=== PATIENT | female | born 1940 | race Caucasian/White ===

== ENCOUNTER 2024-09-05 11:23 | Observation (INO) | payer MEDICARE ==
--- NOTE | 2024-09-05 11:46 | ED ---
Recheck HPI - General Chief Complaint: Recheck/Abnormal Lab/Rx Stated Complaint: HTN Time Seen by Provider: 09/05/24 11:40 Source: patient, family, RN notes reviewed Mode of arrival: ambulatory Limitations: no limitations - History of Present Illness Initial Comments: This is a 84-year-old female with history of hypertension presenting to the emergency department with with referral from records section supervisor office with concern for hypertension. Patient states this morning her blood pressure was elevated in the 200s over 110s. Patient takes amlodipine, losartan, and Lasix. Patient said that she did not take her Lasix this morning. She denies chest pain or chest pressure, shortness of breath, difficulty breathing, headaches, blurry/double vision, peripheral edema. she is on 2.5 mg daily eliquis for history of DVT of lower extremity. no other acute complaints at this time. - Related Data Home Medications Medication Instructions Recorded Confirmed Amitriptyline HCl [Elavil] 50 mg PO HS 09/05/24 09/05/24 Ammonium Lactate Cream [Lac-Hydrin 1 applic TOPICAL BID 09/05/24 09/05/24 12% Cream] Apixaban [Eliquis] 2.5 mg PO BID-W/MEALS 09/05/24 09/05/24 Azelastine HCl [Astelin Nasal 2 spr EA NOSTRIL BID 09/05/24 09/05/24 [place]] Budesonide/Formoterol Fumarate 2 puff INHALATION RT-BID 09/05/24 09/05/24 [Symbicort 160-4.5 Mcg Inhaler] Calcium 600 Mg-Vit D3 25mcg 1 tab PO BID 09/05/24 09/05/24 DULoxetine HCL [Cymbalta] 30 mg PO W/BRKFST 09/05/24 09/05/24 Esomeprazole Magnesium [NexIUM 40 mg PO DAILY@1600 09/05/24 09/05/24 24Hr] Famotidine [Pepcid] 40 mg PO HS 09/05/24 09/05/24 Ferrous Sulfate [Feosol] 325 mg PO Q7D 09/05/24 09/05/24 Fluticasone Nasal [place] [Flonase 2 spr EA NOSTRIL BID 09/05/24 09/05/24 Nasal [place]] Furosemide [Lasix] 40 mg PO W/BRKFST 09/05/24 09/05/24 Leflunomide [Arava] 20 mg PO W/BRKFST 09/05/24 09/05/24 Levothyroxine Sodium [Synthroid] 25 mcg PO MOTUTHFRSA 09/05/24 09/05/24 Levothyroxine Sodium [Synthroid] 50 mcg PO SUWE 09/05/24 09/05/24 Losartan [Cozaar] 50 mg PO W/BRKFST 09/05/24 09/05/24 Multivit-Min/FA/Lycopen/Lutein 1 tab PO W/BRKFST 09/05/24 09/05/24 [Centrum Silver Tablet] Primidone 50 mg PO TID-W/MEALS 09/05/24 09/05/24 Sertraline [Zoloft] 100 mg PO W/SUPPER 09/05/24 09/05/24 Simvastatin [Zocor] 10 mg PO W/SUPPER 09/05/24 09/05/24 Tiotropium 2.5 Mcg/Puff [Spiriva 1 puff INHALATION RT-BID 09/05/24 09/05/24 Respimat 2.5 Mcg] Vit C/E/Zn/Coppr/Lutein/Zeaxan 1 cap PO BID 09/05/24 09/05/24 [Preservision Areds 2 Softgel] Zafirlukast [Accolate] 20 mg PO W/BRKFST 09/05/24 09/05/24 atenoloL [Tenormin] 75 mg PO W/BRKFST 09/05/24 09/05/24 rOPINIRole HCL [Requip XL] 4 mg PO HS 09/05/24 09/05/24 tiZANidine [Zanaflex] 4 mg PO HS 09/05/24 09/05/24 traMADol HCL [traMADol HCL ER] 300 mg PO W/BRKFST 09/05/24 09/05/24 traZODone HCL [Desyrel] 25 mg PO HS 09/05/24 09/05/24 Allergies Allergy/AdvReac Type Severity Reaction Status Date / Time amoxicillin [From Augmentin] Allergy Rash/Hives Verified 09/05/24 15:09 azithromycin Allergy Rash/Hives Verified 09/05/24 15:09 [From Zithromax Z-Deny] clavulanic acid Allergy Rash/Hives Verified 09/05/24 15:09 [From Augmentin] Review of Systems ROS Statement: Those systems with pertinent positive or pertinent negative responses have been documented in the HPI. ROS Other: All systems not noted in ROS Statement are negative. Past Medical History Past Medical History: Hypertension, Rheumatoid Arthritis (RA) Additional Past Medical History / Comment(s): Back pain History of Any Multi-Drug Resistant Organisms: None Reported Past Surgical History: No Surgical Hx Reported Past Psychological History: No Psychological Hx Reported Smoking Status: Never smoker Past Alcohol Use History: None Reported Past Drug Use History: None Reported General Exam Limitations: no limitations General appearance: alert, in no apparent distress Eye exam: Present: normal appearance, PERRL, EOMI. Absent: scleral icterus, conjunctival injection, periorbital swelling ENT exam: Present: normal exam, mucous membranes moist Neck exam: Present: normal inspection. Absent: tenderness, meningismus, lymphadenopathy Respiratory exam: Present: normal lung sounds bilaterally. Absent: respiratory distress, wheezes, rales, rhonchi, stridor Cardiovascular Exam: Present: regular rate, normal rhythm, normal heart sounds. Absent: systolic murmur, diastolic murmur, rubs, gallop, clicks GI/Abdominal exam: Present: soft, normal bowel sounds. Absent: distended, tenderness, guarding, rebound, rigid Extremities exam: Present: normal inspection, full ROM, normal capillary refill, other (bilateral LE peripheral edema, 1+). Absent: tenderness, pedal edema, joint swelling, calf tenderness Back exam: Present: normal inspection Neurological exam: Present: alert, oriented X3, CN II-XII intact Course Vital Signs 09/05/24 09/05/24 11:28 12:35 Temperature 97.6 F Pulse Rate 97 100 Respiratory 20 20 Rate Blood Pressure 201/98 174/107 O2 Sat by Pulse 97 98 Oximetry Medical Decision Making - Medical Decision Making Was pt. sent in by a medical professional or institution (, PA, IN SHOP SERVICE TECHNICIAN, urgent care, hospital, or jail...) When possible be specific @ -Was advised by records section supervisor report to emergency department for hypertension. Did you speak to anyone other than the patient for history (EMS, parent, family, police, friend...)? What history was obtained from this source @ -No Did you review nursing and triage notes (agree or disagree)? Why? @ -I reviewed and agree with nursing and triage notes Were old charts reviewed (outside hosp., previous admission, EMS record, old EKG, old radiological studies, urgent care reports/EKG's, jail records)? Report findings @ -No old charts were reviewed Differential Diagnosis (chest pain, altered mental status, abdominal pain women, abdominal pain men, vaginal bleeding, weakness, fever, dyspnea, syncope, headache, dizziness, GI bleed, back pain, seizure, CVA, palpatations, mental health, musculoskeletal)? @ -Differential Chest Pain: Stable Angina, Unstable Angina, STEMI, NSTEMI Aortic Dissection, Pneumothorax, Musculoskeletal, Esophageal Spasm GERD, Cholecystitis, Pancreatitis, Zoster, this is not meant to be an all-inclusive list. EKG interpreted by me (3pts min.). @ -Completed at 1154 sinus rhythm with a ventricular rate of 96, parable 132, QRS 74, QTc 399. There is noted occasional PVCs. X-rays interpreted by me (1pt min.). @ -None done CT interpreted by me (1pt min.). @ -None done U/S interpreted by me (1pt. min.). @ -None done What testing was considered but not performed or refused? (CT, X-rays, U/S, labs)? Why? @ -None What meds were considered but not given or refused? Why? @ -None Did you discuss the management of the patient with other professionals (professionals i.e. , PA, IN SHOP SERVICE TECHNICIAN, lab, RT, psych nurse, social media senior associate, records section supervisor, teacher, telecommunications officer, case managers)? Give summary @ -spoke with sound internal medicine physician in regard to admission who has agreed with cardiology on consult Was smoking cessation discussed for >3mins.? @ -No Was critical care preformed (if so, how long)? @ -No Were there social determinants of health that impacted care today? How? (Homelessness, low income, unemployed, alcoholism, drug addiction, transportation, low edu. Level, literacy, decrease access to med. care, intermediate, rehab)? @ -No Was there de-escalation of care discussed even if they declined (Discuss DNR or withdrawal of care, Hospice)? DNR status @ -No What co-morbidities impacted this encounter? (DM, HTN, Smoking, COPD, CAD, Canc er, CVA, ARF, Chemo, Hep., AIDS, mental health diagnosis, sleep apnea, morbid obesity)? @ -None Was patient admitted / discharged? Hospital course, mention meds given and route, prescriptions, significant lab abnormalities, going to OR and other pertinent info. @ -admit. 84-year-old female with hypertension. My evaluation patient she is resting up in no signs acute distress. BP noted to be elevated at 201/98. EKG reveals sinus rhythm. Labs remarkable for anemia with a hemoglobin of 9.2, hematocrit 29.7. Patient's troponin is elevated at 0.054. At this time repeat troponin ordered which reveals decreased to 0.043. Patient will be admitted to internal medicine with cardiology on consult for further evaluation. Patient does take 2.5 mg of Eliquis daily and heparinization will be held at this time. Discussed with Dr. Mcgill Undiagnosed new problem with uncertain prognosis? @ -No Drug Therapy requiring intensive monitoring for toxicity (Heparin, Nitro, Insul in, Cardizem)? @ -No Were any procedures done? @ -No Diagnosis/symptom? @ -elevated troponin, HTN Acute, or Chronic, or Acute on Chronic? @ -acute Uncomplicated (without systemic symptoms) or Complicated (systemic symptoms)? @ -complicated Side effects of treatment? @ -No Exacerbation, Progression, or Severe Exacerbation? @ -No Poses a threat to life or bodily function? How? (Chest pain, USA, LA, pneumonia, PE, COPD, DKA, ARF, appy, cholecystitis, CVA, Diverticulitis, Homicidal, Suicidal, threat to staff... and all critical care pts) @ -No - Lab Data Result diagrams: 09/05/24 12:19 09/05/24 12:19 Lab Results 09/05/24 09/05/24 09/05/24 Range/Units 12:19 12:19 12:19 WBC 6.2 (3.8-10.6) k/uL RBC 3.44 L (3.80-5.40) m/uL Hgb 9.2 L (11.4-16.0) gm/dL Hct 29.7 L (34.0-46.0) % MCV 86.2 (80.0-100.0) fL MCH 26.8 (25.0-35.0) pg MCHC 31.1 (31.0-37.0) g/dL RDW 18.2 H (11.5-15.5) % Plt Count 281 (150-450) k/uL MPV 8.8 Neutrophils % 72 % Lymphocytes % 15 % Monocytes % 10 % Eosinophils % 1 % Basophils % 0 % Neutrophils # 4.4 (1.3-7.7) k/uL Lymphocytes # 0.9 L (1.0-4.8) k/uL Monocytes # 0.6 (0-1.0) k/uL Eosinophils # 0.1 (0-0.7) k/uL Basophils # 0.0 (0-0.2) k/uL Hypochromasia Marked Poikilocytosis Slight Anisocytosis Slight Sodium 138 (137-145) mmol/L Potassium 3.6 (3.5-5.1) mmol/L Chloride 113 H (98-107) mmol/L Carbon Dioxide 19 L (22-30) mmol/L Anion Gap 6 mmol/L BUN 18 H (7-17) mg/dL Creatinine 0.74 (0.52-1.04) mg/dL Est GFR (CKD-EPI)AfAm 88 (>60 ml/min/1.73 sqM) Est GFR (CKD-EPI)NonAf 76 (>60 ml/min/1.73 sqM) Glucose 121 H (74-99) mg/dL Calcium 9.2 (8.4-10.2) mg/dL Magnesium 2.1 (1.6-2.3) mg/dL Total Bilirubin 0.5 (0.2-1.3) mg/dL AST 32 (14-36) U/L ALT 21 (4-34) U/L Alkaline Phosphatase 121 (38-126) U/L Troponin I 0.054 H* (0.000-0.034) ng/mL Total Protein 6.4 (6.3-8.2) g/dL Albumin 3.7 (3.5-5.0) g/dL Disposition Clinical Impression: Hypertension, Elevated troponin Disposition: ADMITTED IP TO THIS [facility] Condition: Stable Decision to Admit Reason: Admit from EC Decision Date: 09/05/24 Decision Time: 14:13
[2024-09-05 12:26] LABS: Anisocytosis Slight; Basophils % (A) 0 %; Eosinophils # (A) 0.1 k/uL (0-0.7); Eosinophils % (A) 1 %; HCT 29.7 % (34.0-46.0); HGB 9.2 gm/dL (11.4-16.0); Hypochromasia Marked; Lymphocytes # (A) 0.9 k/uL (1.0-4.8); Lymphocytes % (A) 15 %; MCH 26.8 pg (25.0-35.0); MCHC 31.1 g/dL (31.0-37.0); MCV 86.2 fL (80.0-100.0); Mean Platelet Volume 8.8; Monocytes # (A) 0.6 k/uL (0-1.0); Monocytes % (A) 10 %; Neutrophils # (A) 4.4 k/uL (1.3-7.7); Neutrophils % (A) 72 %; Platelet Count 281 k/uL (150-450); Poikilocytosis Slight; RBC 3.44 m/uL (3.80-5.40); RDW 18.2 % (11.5-15.5); WBC 6.2 k/uL (3.8-10.6)
[2024-09-05 12:41] LABS: ALT 21 U/L (4-34); AST 32 U/L (14-36); African American GFR (CKD) 88 (>60 ml/min/1.73 sqM); Albumin 3.7 g/dL (3.5-5.0); Alkaline Phosphatase 121 U/L (38-126); Anion Gap 6 mmol/L; Blood Urea Nitrogen 18 mg/dL (7-17); Calcium 9.2 mg/dL (8.4-10.2); Carbon Dioxide 19 mmol/L (22-30); Chloride 113 mmol/L (98-107); Glucose 121 mg/dL (74-99); Magnesium 2.1 mg/dL (1.6-2.3); Non-African American GFR(CKD) 76 (>60 ml/min/1.73 sqM); Potassium 3.6 mmol/L (3.5-5.1); Sodium 138 mmol/L (137-145); Total Bilirubin 0.5 mg/dL (0.2-1.3); Total Protein 6.4 g/dL (6.3-8.2)
[2024-09-05] MEDS: rOPINIRole HCL 4 MG TABLET PO STA (13:07)
[2024-09-05] MEDS: ASPIRIN 325 MG TAB PO STA (13:14)
[2024-09-05] MEDS ORDERED: NALOXONE 0.4 MG/ML 1 ML VIAL IV PRN (14:13)
--- NOTE | 2024-09-05 16:13 | P.HPIM ---
History of Present Illness H&P Date: 09/05/24 Chief Complaint: elevated BP 84-year-old woman with medical history of hypertension, hypothyroidism, restless leg syndrome, mood disorder, allergies presented from balloon design printer office after she was found to have an incidental blood pressure of 221/114. Her balloon design printer noted that she had significantly elevated blood pressure when she was there to visit for an allergy shot. Patient was advised to come to the emergency room for further evaluation. Patient denied having any symptoms of chest pain, visual changes, weakness, numbness, palpitations, syncope, presyncope. She continues to take her medications at home which include losartan, Lasix, atenolol. In the emergency room, patient was noted to be afebrile, 201/98, heart rate 97, 97% on room air. CBC is remarkable for anemia down to 9.2 basic metabolic panel shows acidosis with CO2 of 19 without a gap. Liver function tests are unremarkable. Troponin was 0.054 then trended 0.043. EKG shows normal sinus rhythm with a heart rate of 96 with occasional PVCs, poor R wave progression in the anterior leads. All Systems reviewed and pertinent positives and negatives noted in HPI, all other symptoms are negative Gen: In NAD, non-toxic HEENT: normocephalic, atraumatic, hearing acuity is intant, mucous membranes moist CVS: perfusing all extremities well, no pitting edema, Respiratory: symmetric chest expansion, no accessory muscle use, GI: soft, NTTP, ND, : no suprapubic tenderness, no CVA tenderness MSK/Derm: no rashes, cyanosis Neuro: CN II-XII intact, no motor weakness, Psych: cooperative, euthymic mood, judgment and insight is intact Labs and imaging as above Assessment/plan: Hypertensive urgency Elevated troponin secondary to above -Admit to observation with telemetry -Resume patient's home atenolol, losartan, Lasix; increase home losartan from 50 mg daily to 100 mg daily -Cardiology was consulted by the ER -Echo -A.m. labs Hypothyroidism Restless leg syndrome Mood disorder Multiple allergies -Home medications reviewed and reconciled Patient is full code Past Medical History Past Medical History: Hypertension, Rheumatoid Arthritis (RA) Additional Past Medical History / Comment(s): Back pain History of Any Multi-Drug Resistant Organisms: None Reported Past Surgical History: No Surgical Hx Reported Past Psychological History: No Psychological Hx Reported Smoking Status: Never smoker Past Alcohol Use History: None Reported Past Drug Use History: None Reported Medications and Allergies Home Medications Medication Instructions Recorded Confirmed Type Amitriptyline HCl [Elavil] 50 mg PO HS 09/05/24 09/05/24 History Ammonium Lactate Cream [Lac-Hydrin 1 applic TOPICAL BID 09/05/24 09/05/24 History 12% Cream] Apixaban [Eliquis] 2.5 mg PO BID-W/MEALS 09/05/24 09/05/24 History Azelastine HCl [Astelin Nasal 2 spr EA NOSTRIL BID 09/05/24 09/05/24 History [place]] Budesonide/Formoterol Fumarate 2 puff INHALATION RT-BID 09/05/24 09/05/24 History [Symbicort 160-4.5 Mcg Inhaler] Calcium 600 Mg-Vit D3 25mcg 1 tab PO BID 09/05/24 09/05/24 History DULoxetine HCL [Cymbalta] 30 mg PO W/BRKFST 09/05/24 09/05/24 History Esomeprazole Magnesium [NexIUM 40 mg PO DAILY@1600 09/05/24 09/05/24 History 24Hr] Famotidine [Pepcid] 40 mg PO HS 09/05/24 09/05/24 History Ferrous Sulfate [Feosol] 325 mg PO Q7D 09/05/24 09/05/24 History Fluticasone Nasal [place] [Flonase 2 spr EA NOSTRIL BID 09/05/24 09/05/24 History Nasal [place]] Furosemide [Lasix] 40 mg PO W/BRKFST 09/05/24 09/05/24 History Leflunomide [Arava] 20 mg PO W/BRKFST 09/05/24 09/05/24 History Levothyroxine Sodium [Synthroid] 25 mcg PO MOTUTHFRSA 09/05/24 09/05/24 History Levothyroxine Sodium [Synthroid] 50 mcg PO SUWE 09/05/24 09/05/24 History Losartan [Cozaar] 50 mg PO W/BRKFST 09/05/24 09/05/24 History Multivit-Min/FA/Lycopen/Lutein 1 tab PO W/BRKFST 09/05/24 09/05/24 History [Centrum Silver Tablet] Primidone 50 mg PO TID-W/MEALS 09/05/24 09/05/24 History Sertraline [Zoloft] 100 mg PO W/SUPPER 09/05/24 09/05/24 History Simvastatin [Zocor] 10 mg PO W/SUPPER 09/05/24 09/05/24 History Tiotropium 2.5 Mcg/Puff [Spiriva 1 puff INHALATION RT-BID 09/05/24 09/05/24 History Respimat 2.5 Mcg] Vit C/E/Zn/Coppr/Lutein/Zeaxan 1 cap PO BID 09/05/24 09/05/24 History [Preservision Areds 2 Softgel] Zafirlukast [Accolate] 20 mg PO W/BRKFST 09/05/24 09/05/24 History atenoloL [Tenormin] 75 mg PO W/BRKFST 09/05/24 09/05/24 History rOPINIRole HCL [Requip XL] 4 mg PO HS 09/05/24 09/05/24 History tiZANidine [Zanaflex] 4 mg PO HS 09/05/24 09/05/24 History traMADol HCL [traMADol HCL ER] 300 mg PO W/BRKFST 09/05/24 09/05/24 History traZODone HCL [Desyrel] 25 mg PO HS 09/05/24 09/05/24 History Allergies Allergy/AdvReac Type Severity Reaction Status Date / Time amoxicillin [From Augmentin] Allergy Rash/Hives Verified 09/05/24 15:09 azithromycin Allergy Rash/Hives Verified 09/05/24 15:09 [From Zithromax Z-Deny] clavulanic acid Allergy Rash/Hives Verified 09/05/24 15:09 [From Augmentin] Physical Exam Osteopathic Statement: *. No significant issues noted on an osteopathic s tructural exam other than those noted in the History and Physical/Consult. Vitals: Vital Signs Temp Pulse Resp BP Pulse Ox 09/05/24 12:35 100 20 174/107 98 09/05/24 11:28 97.6 F 97 20 201/98 97 Intake and Output 09/05/24 09/05/24 09/05/24 06:59 14:59 22:59 Other: Weight 70.307 kg Results CBC & Chem 7: 09/05/24 12:19 09/05/24 12:19 Labs: Abnormal Lab Results - Last 24 Hours (Table) 09/05/24 09/05/24 09/05/24 Range/Units 12:19 12:19 12:19 RBC 3.44 L (3.80-5.40) m/uL Hgb 9.2 L (11.4-16.0) gm/dL Hct 29.7 L (34.0-46.0) % RDW 18.2 H (11.5-15.5) % Lymphocytes # 0.9 L (1.0-4.8) k/uL Chloride 113 H (98-107) mmol/L Carbon Dioxide 19 L (22-30) mmol/L BUN 18 H (7-17) mg/dL Glucose 121 H (74-99) mg/dL Troponin I 0.054 H* (0.000-0.034) ng/mL 09/05/24 Range/Units 15:20 RBC (3.80-5.40) m/uL Hgb (11.4-16.0) gm/dL Hct (34.0-46.0) % RDW (11.5-15.5) % Lymphocytes # (1.0-4.8) k/uL Chloride (98-107) mmol/L Carbon Dioxide (22-30) mmol/L BUN (7-17) mg/dL Glucose (74-99) mg/dL Troponin I 0.043 H* (0.000-0.034) ng/mL
[2024-09-05] MEDS: APIXABAN 5 MG TAB PO SCH (17:55)
[2024-09-05] MEDS: CALCIUM CARB-VIT D 500 MG-5 MCG TAB PO SCH (17:56)
[2024-09-05] MEDS: ATORVASTATIN 10 MG TAB PO SCH (17:56)
[2024-09-05] MEDS: SERTRALINE 100 MG TAB PO SCH (17:57)
[2024-09-05] MEDS: AMITRIPTYLINE HCL 50 MG TAB PO SCH (17:57)
[2024-09-05] MEDS: PRIMIDONE 50 MG TAB PO SCH (18:46)
[2024-09-05] MEDS: LEVOTHYROXINE 25 MCG TAB PO SCH (18:47)
[2024-09-05] MEDS: FLUTICASONE NASAL 50MCG/SPRAY 16GM BTL EA NOSTRIL SCH (19:42)
[2024-09-05] MEDS: AZELASTINE 137MCG/SPRAY EA NOSTRIL SCH (19:42)
[2024-09-05] MEDS: tiZANidine 4 MG TAB PO SCH (19:43)
[2024-09-05] MEDS: MONTELUKAST 5 MG CHEWABLE PO SCH (19:43)
[2024-09-05] MEDS: FAMOTIDINE 20 MG TAB PO SCH (19:43)
[2024-09-05] MEDS: traZODone HCL 50 MG TAB PO SCH (19:43)
[2024-09-05] MEDS: VIT A,C & E-LUTEIN-MINERALS 1 EACH TAB PO SCH (19:43)
[2024-09-05] MEDS: AMMONIUM LACTATE 12% CREAM 140 GM TUBE TOPICAL SCH (19:44)
[2024-09-05] MEDS: SYMBICORT 160-4.5 MCG INHALER INHALATION SCH (21:01)
[2024-09-05] MEDS: ACETAMINOPHEN TAB 325 MG TAB PO PRN (23:53)
--- NOTE | 2024-09-06 00:19 | P.PN ---
Progress Note - Text Progress Note Date: 09/06/24 Spoke with the patient confirmed with the nurse told me that she would like to be a no code. Discussed of this month with the patient and she assured me that she understood would be no equipment. Discussed the patient's goals of care in extensive detail. Discussed the caveats of CPR and multiple forms of available life support. She reports having discussed this in detail with her , and family members. She also notes to having filled out paperwork in the past outlining these wishes, and her will. Patient reports that while although she does now wish to undergo CPR or be placed on life support in the event of cardiac/respiratory arrest, alternate forms of life support not in the setting of cardiac/respiratory arrest would be considered.
[2024-09-06] MEDS: LOSARTAN 50 MG TAB PO SCH (05:25)
[2024-09-06] MEDS: MULTIVITAMINS, THERA 1 EACH TAB PO SCH (05:25)
[2024-09-06] MEDS: DULoxetine HCL 30 MG CAPSULE.DR PO SCH (05:25)
[2024-09-06] MEDS: ONDANSETRON 4 MG/2 ML VIAL IVP STA (05:26)
[2024-09-06] MEDS: atenoloL 50 MG TAB PO SCH (05:26)
[2024-09-06] MEDS: FUROSEMIDE 40 MG TAB PO SCH (05:26)
[2024-09-06 07:15] LABS: Anisocytosis Slight; Basophils % (A) 0 %; Eosinophils % (A) 0 %; HCT 29.2 % (34.0-46.0); HGB 8.9 gm/dL (11.4-16.0); Hypochromasia Marked; Lymphocytes # (A) 0.9 k/uL (1.0-4.8); Lymphocytes % (A) 14 %; MCH 26.4 pg (25.0-35.0); MCHC 30.4 g/dL (31.0-37.0); MCV 86.8 fL (80.0-100.0); Mean Platelet Volume 9.2; Monocytes # (A) 0.6 k/uL (0-1.0); Monocytes % (A) 9 %; Neutrophils # (A) 4.8 k/uL (1.3-7.7); Neutrophils % (A) 75 %; Platelet Count 286 k/uL (150-450); Poikilocytosis Slight; RBC 3.36 m/uL (3.80-5.40); RDW 17.9 % (11.5-15.5); WBC 6.5 k/uL (3.8-10.6)
[2024-09-06 07:28] LABS: ALT 25 U/L (4-34); AST 36 U/L (14-36); African American GFR (CKD) 80 (>60 ml/min/1.73 sqM); Albumin 3.8 g/dL (3.5-5.0); Alkaline Phosphatase 128 U/L (38-126); Anion Gap 10 mmol/L; Blood Urea Nitrogen 18 mg/dL (7-17); Calcium 9.2 mg/dL (8.4-10.2); Carbon Dioxide 23 mmol/L (22-30); Chloride 106 mmol/L (98-107); Glucose 121 mg/dL (74-99); Non-African American GFR(CKD) 69 (>60 ml/min/1.73 sqM); Potassium 3.3 mmol/L (3.5-5.1); Sodium 139 mmol/L (137-145); Total Bilirubin 0.4 mg/dL (0.2-1.3); Total Protein 6.3 g/dL (6.3-8.2)
[2024-09-06] MEDS ORDERED: LOSARTAN 50 MG TAB PO SCH (07:30)
[2024-09-06] MEDS: TIOTROPIUM 2.5 MCG INHALER INHALATION SCH (09:11)
[2024-09-06] MEDS: POTASSIUM CHLORIDE ER 20 MEQ TAB.ER PO STA (09:25)
[2024-09-06] MEDS: traMADol 50 MG TAB PO SCH (09:25)
[2024-09-06] MEDS: LEFLUNOMIDE 20 MG TAB PO SCH (09:26)
--- NOTE | 2024-09-06 10:40 | XR ---
EXAMINATION TYPE: XR chest 2V DATE OF EXAM: 09/06/2024 8:58 AM COMPARISON: Chest radiographs from 09/06/2024. CLINICAL INDICATION: Female, 84 years old with history of elevated trops, hypertensive urgency; TECHNIQUE: XR chest 2V Frontal and lateral views of the chest. FINDINGS: Lungs/Pleura: There is no evidence of pleural effusion, focal consolidation, or pneumothorax. Pulmonary vascularity: Unremarkable. Heart/mediastinum: Cardiomediastinal silhouette is unremarkable. Musculoskeletal: No acute osseous pathology. IMPRESSION: 1. No acute cardiopulmonary disease process. 2. COPD changes. [facility], , 09/06/2024 10:37 AM
[2024-09-06 11:26] VITALS: BMI 29.8
--- NOTE | 2024-09-06 12:15 | P.PN ---
Subjective Progress Note Date: 09/06/24 Hospital course: Patient is a very pleasant 84-year-old female with a past medical history of hypertension, history of DVT in right lower extremity on Eliquis, hyp othyroidism, rheumatoid arthritis, restless leg syndrome, mood disorder, asthma and multiple allergies under care of dairy farm manager. She presented to the hospital on 09/05/2024 from her dairy farm manager office for reports of hypertension with a reported blood pressure of 221/114. Patient was asymptomatic to hypertension but was sent to our facility for evaluation. Upon arrival to our facility, patient underwent evaluation in the emergency department. Vital signs upon arrival show blood pressure 201/98, heart rate 97, respiratory rate 20, temp 97.6 F, and SpO2 of 97% on room air. EKG completed showing sinus rhythm at 96 bpm with occasional PVCs. Labs completed and reviewed. CBC showing stable nor mocytic anemia with hemoglobin of 9.2. BMP showing hyperchloremia with chloride of 113 bicarb of 19, and anion gap of 6 with prerenal azotemia with BUN of 18. Blood glucose 121. Liver profile unremarkable. Troponin was 0.054. Patient was admitted under services for hypertensive urgency with consultation to cardiology for hypertensive urgency and elevated troponin. Troponins were trended resulting at 0.054 and 0.043. Physical exam: Vital signs reviewed and stable. General: Nontoxic, no distress and appears stated age. Derm: Skin warm and dry, normal coloration for ethnicity. Head: Atraumatic, normocephalic and symmetric. Eyes: EOM's intact, no lid lag, and anicteric sclera Mouth: no lip lesions, mucus membranes moist Cardiovascular: regular rate and rhythm with normal S1S2, no murmur, positive posterior tibial pulses bilaterally, and cap refill < 2 seconds. Lungs: Respirations even, regular, and unlabored on room air. Lungs CTA bilaterally, no rhonchi, no rales, no wheezing, and no accessory muscle usage. Abdominal: soft, nontender to palpation, no guarding, no appreciable organomegaly Ext: ROM intact. No gross muscle atrophy, no edema, no contractures Neuro: Speech clear, face symmetrical and CN II-XII grossly intact with no noted focal neuro deficits Psych: Alert and oriented to person, place, time, and situation. Appropriate and pleasant affect. Assessment and Plan of Care: Hypertensive urgency Elevated troponins History of DVT right lower extremity -Troponins were trended resulting at 0.054 and 0.043. -Telemetry monitoring. -Cardiology following, reviewed documentation in chart -Patient to continue daily medication regimen with Eliquis 5 mg twice daily, aspirin 81 mg daily, atenolol 75 mg daily, atorvastatin 10 mg nightly, Lasix 40 mg daily, losartan 100 mg daily, and cardiology starting patient on Aldactone 25 mg daily. -Echocardiogram to be completed. Hypothyroidism: Continue levothyroxine 50 mcg on Sundays and Wednesdays and thyroxine 25 mcg Mondays, Tuesdays, , Fridays, and Saturdays. Restless leg syndrome: Continue Requip 1.25 mg 3 times daily. Asthma: Continue Astepro 2 sprays in bilateral naris daily, Symbicort 2 puffs twice daily, Singulair 5 mg nightly, Spiriva 2 puffs daily, and Rheumatoid arthritis: Continue Arava 20 mg daily. Mood disorder: Continue daily medication regimen with Elavil 50 mg nightly, Cymbalta 30 mg daily Zoloft 100 mg daily, and trazodone 25 mg nightly. Data and imaging reviewed: Morning labs reviewed. CBC showing stable normocytic anemia with hemoglobin of 8.9. BMP showing mild hypokalemia with potassium of 3.3, elevated BUN of 18, blood glucose of 121. Liver profile showing elevated alkaline phosphatase of 128 otherwise normal findings. Vital signs reviewed. Blood pressure 177/78, heart rate 88, respiratory rate 16, temp 98.0 F, and SpO2 of 96% on room air. CODE STATUS: DNR/DNI DVT prophylaxis: Eliquis Anticipated discharge date: Pending clinical course Anticipated discharge place: Pending clinical course Patient was seen independently by Nurse Pracitioner. This document was prepared using [employer] dictation software. Please allow for errors in home organizer, while rare they do occur. Devon Galindo NP rendered care for this patient independently, reviewed the findings and plan as documented in the note above and agree with plan. I did not physically speak with or examine the patient on this date. Objective - Vital Signs Vital signs: Vital Signs Temp 97.8 F 09/06/24 04:17 Pulse 102 H 09/06/24 04:17 Resp 16 09/06/24 04:17 BP 175/82 11/19/24 04:17 Pulse Ox 96 09/06/24 04:17 FiO2 Intake & Output 09/05/24 09/06/24 09/06/24 18:59 06:59 18:59 Weight 70.307 kg 69.3 kg Other: Voiding Method Toilet # Voids 1 - Labs CBC & Chem 7: 09/06/24 06:36 09/06/24 06:36 Labs: Abnormal Lab Results - Last 24 Hours (Table) 09/05/24 09/05/24 09/05/24 Range/Units 12:19 12:19 12:19 RBC 3.44 L (3.80-5.40) m/uL Hgb 9.2 L (11.4-16.0) gm/dL Hct 29.7 L (34.0-46.0) % MCHC (31.0-37.0) g/dL RDW 18.2 H (11.5-15.5) % Lymphocytes # 0.9 L (1.0-4.8) k/uL Potassium (3.5-5.1) mmol/L Chloride 113 H (98-107) mmol/L Carbon Dioxide 19 L (22-30) mmol/L BUN 18 H (7-17) mg/dL Glucose 121 H (74-99) mg/dL Alkaline Phosphatase (38-126) U/L Troponin I 0.054 H* (0.000-0.034) ng/mL 09/05/24 09/06/24 09/06/24 Range/Units 15:20 06:36 06:36 RBC 3.36 L (3.80-5.40) m/uL Hgb 8.9 L (11.4-16.0) gm/dL Hct 29.2 L (34.0-46.0) % MCHC 30.4 L (31.0-37.0) g/dL RDW 17.9 H (11.5-15.5) % Lymphocytes # 0.9 L (1.0-4.8) k/uL Potassium 3.3 L (3.5-5.1) mmol/L Chloride (98-107) mmol/L Carbon Dioxide (22-30) mmol/L BUN 18 H (7-17) mg/dL Glucose 121 H (74-99) mg/dL Alkaline Phosphatase 128 H (38-126) U/L Troponin I 0.043 H* (0.000-0.034) ng/mL
--- NOTE | 2024-09-06 12:19 | CA ---
Transthoracic Echo Report Name: Yudi Flores Age: 84 Gender: F : 1940 Exam Date: 09/06/2024 08:36 Exam Location: [facility] Ht (in): 60 Wt (lb): 155 Ordering Physician: Sulma Wylie Attending/Referring Phys: Quality Inspector Manuela Artaega RDCS Procedure CPT: Indications: htn, elevated trop Cardiac Hx: Technical Quality: Good Contrast 1: Total Dose (mL): Contrast 2: Total Dose (mL): MEASUREMENTS (Male / Female) Normal Values 2D ECHO LV Diastolic Diameter PLAX 3.9 cm 4.2 - 5.9 / 3.9 - 5.3 cm LV Systolic Diameter PLAX 2.8 cm IVS Diastolic Thickness 1.2 cm 0.6 - 1.0 / 0.6 - 0.9 cm LVPW Diastolic Thickness 1.3 cm 0.6 - 1.0 / 0.6 - 0.9 cm LV Relative Wall Thickness 0.6 RV Internal Dim ED PLAX 3.1 cm LA Systolic Diameter LX 4.5 cm 3.0 - 4.0 / 2.7 - 3.8 cm LV Diastolic Volume MOD 4C 92.4 cm??? LV Systolic Volume MOD 4C 38.8 cm??? LV Ejection Fraction MOD 4C 58.1 % LV Cardiac Index MOD 4C 2788.3 cm???/min???m??? LV Diastolic Length 4C 7.3 cm LV Systolic Length 4C 5.9 cm LV Diastolic Volume MOD 2C 74.0 cm??? LV Systolic Volume MOD 2C 28.9 cm??? LV Ejection Fraction MOD 2C 60.9 % LV Cardiac Index MOD 2C 2340.6 cm???/min???m??? LV Diastolic Length 2C 7.4 cm LV Systolic Length 2C 6.0 cm M-MODE Aortic Root Diameter MM 2.8 cm AV Cusp Separation MM 2.0 cm DOPPLER AV Peak Velocity 151.0 cm/s AV Peak Gradient 9.1 mmHg AI Peak Velocity 456.6 cm/s AI Peak Gradient 83.4 mmHg AI Pressure Half Time 459.6 ms Mitral E Point Velocity 88.5 cm/s Mitral A Point Velocity 106.3 cm/s Mitral E to A Ratio 0.8 MV Deceleration Time 173.4 ms MV E' Velocity 6.1 cm/s Mitral E to MV E' Ratio 14.5 TR Peak Velocity 346.0 cm/s TR Peak Gradient 47.9 mmHg Right Ventricular Systolic Press 57.9 mmHg FINDINGS Left Ventricle Left ventricular ejection fraction is estimated at 60-65 %. Left ventricular cavity size normal. Mildly increased septal wall thickness. Moderately increased posterior wall thickness. Normal left ventricular wall motion. Right Ventricle Normal right ventricular size and function. Severe pulmonary hypertension. Right ventricular systolic pressure estimated at 58 mm hg. Right Atrium Normal right atrial size. No right atrial thrombus or mass seen. Left Atrium Moderately increased left atrial diameter. No left atrial thrombus or mass present. Mitral Valve Structurally normal mitral valve. Mild mitral regurgitation. Aortic Valve Trileaflet aortic valve. Moderate aortic regurgitation. Thickened aortic valve without stenosis. Tricuspid Valve Structurally normal tricuspid valve. Severe tricuspid regurgitation. Pulmonic Valve Structurally normal pulmonic valve. Mild pulmonic regurgitation. Pericardium No pericardial or pleural effusion. Aorta Normal size aortic root and proximal ascending aorta. CONCLUSIONS LVEF 60 to 65% He mild concentric LVH No obvious regional wall motion abnormality Normal RV size and systolic function. Severe pulmonary hypertension, RVSP 58 mmHg Moderate aortic regurgitation Mild mitral regurgitation, moderate to severe tricuspid regurgitation Previewed by: Dr Sina Amos (Electronically Signed) Final Date: 06 September 2024 12:18
[2024-09-06] MEDS: SPIRONOLACTONE 25 MG TAB PO SCH (12:33)
[2024-09-06] MEDS: ASPIRIN 81 MG PO SCH (12:33)
--- NOTE | 2024-09-06 13:37 | US ---
EXAMINATION TYPE: US venous doppler duplex LE DATE OF EXAM: 09/06/2024 12:53 PM COMPARISON: NONE CLINICAL INDICATION: Female, 84 years old with history of DVT; DVT, TECHNIQUE: The lower extremity deep venous system is examined utilizing real time linear array sonog nikita with graded compression, color doppler sonography, and spectral doppler. SIDE PERFORMED: Bilateral FINDINGS: VESSELS IMAGED: Common Femoral Vein Deep Femoral Vein Greater Saphenous Vein * Femoral Vein Popliteal Vein Small Saphenous Vein * Proximal Calf Veins (* superficial vessels) Right Leg: Negative for DVT, Color Doppler imaging shows patency of the vessels. Spectral waveforms are within normal limits. Left Leg: Negative for DVT, Color Doppler imaging shows patency of the vessels. Spectral waveforms a re within normal limits. IMPRESSION: No ultrasound evidence for deep venous thrombosis. [facility], , 09/06/2024 1:34 PM
--- NOTE | 2024-09-06 13:37 | P.CRDCN ---
History of Present Illness Consult date: 09/06/24 Consult reason: hypertension History of present illness: This is an 84-year-old female with past medical history of hypertension, hyperlipidemia, hypothyroidism, rheumatoid arthritis on Arava, right lower extremity DVT 4 months ago on Eliquis, restless leg syndrome. Patient presented from her community leader office and was found to have blood pressure reading of 221/114 and she was sent into [facility] emergency center for evaluation. Patient presented to [facility] with blood pressure of 201/98. Patient denies having any chest pain or chest pressure. She feels worn out. No lightheadedness or dizziness. She does get fatigue with activity. No history of smoking and no alcohol use. She does have a family history of father passing at age 52 from a myocardial infarction. She has been taking all of her medications as directed and her losartan has been increased here. Blood pressure 175/82, heart rate 102, pulse ox 96% on room air -EKG: Sinus rhythm [address] changes, PVCs -Chest x-ray: No acute process. COPD. -Echocardiogram reveals EF of 60 to 65%, mild concentric LVH. RVSP 58 mmHg with severe pulmonary hypertension. Moderate aortic regurgitation, mild mitral regurgitation, moderate to severe tricuspid regurgitation. -Laboratory studies: Hemoglobin 8.9. Potassium 3.3, creatinine 0.8. Troponin 0.054 and 0.043. -Home cardiac medications: Eliquis 2.5 mg twice daily, atenolol 75 mg daily, Lasix 40 mg daily, losartan 50 mg daily, simvastatin 10 mg with supper, also on levothyroxine. Review Of Systems: At the time of my exam: CONSTITUTIONAL: Denies fever or chills. HEENT: Denies blurred vision, vision changes, or eye pain. Denies hemoptysis CARDIOVASCULAR: Denies chest pain. Denies orthopnea. Denies PND. Denies palpitations RESPIRATORY: Denies shortness of breath. GASTROINTESTINAL: Denies abdominal pain. Denies nausea or vomiting. HEMATOLOGIC: Denies bleeding disorders. GENITOURINARY: Denies any blood in urine. SKIN: Denies puritis. Denies rash. Physical examination: Gen: This is an 84-year-old female in no acute distress VS: reviewed HEENT: Head is atraumatic, normocephalic. Pupils equal, round. Sclerae is anicteric. NECK: Supple. No JVD. LUNGS: Clear to auscultation. No wheezes or rhonchi. No intercostal retractions. HEART: Regular rate and rhythm. Systolic murmur. ABDOMEN: Soft No tenderness. EXTREMITIES: No pedal edema. No calf tenderness. NEUROLOGICAL: Patient is awake, alert and oriented x3. Assessment: Hypertensive urgency Elevated troponin Anemia Hyperlipidemia Hypothyroidism Rheumatoid arthritis on Arava Valvular heart disease with moderate aortic regurgitation, mild mitral regurgitation, moderate to severe tricuspid regurgitation Severe pulmonary hypertension with RVSP 58 Plan: Resume patient's home cardiac medications Agree with increase losartan 100 mg daily Obtain ultrasound of the bilateral lower extremities to rule out DVT If ultrasound is negative for DVT, discontinue Eliquis Discussed with patient that she may follow-up with Dr. Hong in the office for outpatient stress testing Further recommendations to follow based upon clinical course Thank you kindly for this consultation. Nurse practitioner note has been reviewed, I agree with documented findings and plan of care. Patient was seen and examined. Past Medical History Past Medical History: Deep Vein Thrombosis (DVT), Hyperlipidemia, Hypertension, Rheumatoid Arthritis (RA) Additional Past Medical History / Comment(s): Back pain History of Any Multi-Drug Resistant Organisms: None Reported Past Surgical History: No Surgical Hx Reported Past Psychological History: No Psychological Hx Reported Smoking Status: Never smoker Past Alcohol Use History: None Reported Past Drug Use History: None Reported - Past Family History Mother History Unknown: Yes Medications and Allergies Home Medications Medication Instructions Recorded Confirmed Type Amitriptyline HCl [Elavil] 50 mg PO HS 09/05/24 09/05/24 History Ammonium Lactate Cream [Lac-Hydrin 1 applic TOPICAL BID 09/05/24 09/05/24 History 12% Cream] Apixaban [Eliquis] 2.5 mg PO BID-W/MEALS 09/05/24 09/05/24 History Azelastine HCl [Astelin Nasal 2 spr EA NOSTRIL BID 09/05/24 09/05/24 History [place]] Budesonide/Formoterol Fumarate 2 puff INHALATION RT-BID 09/05/24 09/05/24 History [Symbicort 160-4.5 Mcg Inhaler] Calcium 600 Mg-Vit D3 25mcg 1 tab PO BID 09/05/24 09/05/24 History DULoxetine HCL [Cymbalta] 30 mg PO W/BRKFST 09/05/24 09/05/24 History Esomeprazole Magnesium [NexIUM 40 mg PO DAILY@1600 09/05/24 09/05/24 History 24Hr] Famotidine [Pepcid] 40 mg PO HS 09/05/24 09/05/24 History Ferrous Sulfate [Feosol] 325 mg PO Q7D 09/05/24 09/05/24 History Fluticasone Nasal [place] [Flonase 2 spr EA NOSTRIL BID 09/05/24 09/05/24 History Nasal [place]] Furosemide [Lasix] 40 mg PO W/BRKFST 09/05/24 09/05/24 History Leflunomide [Arava] 20 mg PO W/BRKFST 09/05/24 09/05/24 History Levothyroxine Sodium [Synthroid] 25 mcg PO MOTUTHFRSA 09/05/24 09/05/24 History Levothyroxine Sodium [Synthroid] 50 mcg PO SUWE 09/05/24 09/05/24 History Losartan [Cozaar] 50 mg PO W/BRKFST 09/05/24 09/05/24 History Multivit-Min/FA/Lycopen/Lutein 1 tab PO W/BRKFST 09/05/24 09/05/24 History [Centrum Silver Tablet] Primidone 50 mg PO TID-W/MEALS 09/05/24 09/05/24 History Sertraline [Zoloft] 100 mg PO W/SUPPER 09/05/24 09/05/24 History Simvastatin [Zocor] 10 mg PO W/SUPPER 09/05/24 09/05/24 History Tiotropium 2.5 Mcg/Puff [Spiriva 1 puff INHALATION RT-BID 09/05/24 09/05/24 History Respimat 2.5 Mcg] Vit C/E/Zn/Coppr/Lutein/Zeaxan 1 cap PO BID 09/05/24 09/05/24 History [Preservision Areds 2 Softgel] Zafirlukast [Accolate] 20 mg PO W/BRKFST 09/05/24 09/05/24 History atenoloL [Tenormin] 75 mg PO W/BRKFST 09/05/24 09/05/24 History rOPINIRole HCL [Requip XL] 4 mg PO HS 09/05/24 09/05/24 History tiZANidine [Zanaflex] 4 mg PO HS 09/05/24 09/05/24 History traMADol HCL [traMADol HCL ER] 300 mg PO W/BRKFST 09/05/24 09/05/24 History traZODone HCL [Desyrel] 25 mg PO HS 09/05/24 09/05/24 History Allergies Allergy/AdvReac Type Severity Reaction Status Date / Time amoxicillin [From Augmentin] Allergy Rash/Hives Verified 09/05/24 15:09 azithromycin Allergy Rash/Hives Verified 09/05/24 15:09 [From Zithromax Z-Deny] clavulanic acid Allergy Rash/Hives Verified 09/05/24 15:09 [From Augmentin] Physical Exam Vitals: Vital Signs Temp Pulse Pulse Pulse Resp BP BP 09/06/24 04:17 97.8 F 102 H 16 175/82 09/05/24 23:26 97.7 F 110 H 18 173/71 09/05/24 19:29 98.6 F 97 16 09/05/24 18:30 97.6 F 81 09/05/24 17:51 98 F 86 16 181/103 09/05/24 12:35 100 20 174/107 09/05/24 11:28 97.6 F 97 20 201/98 BP Pulse Ox 09/06/24 04:17 96 09/05/24 23:26 97 09/05/24 19:29 168/78 100 09/05/24 18:30 180/100 97 09/05/24 17:51 100 09/05/24 12:35 98 09/05/24 11:28 97 Intake and Output 09/05/24 09/06/24 09/06/24 22:59 06:59 14:59 Other: Voiding Method Toilet Toilet # Voids 1 1 Weight 70.307 kg 69.3 kg Results 09/06/24 06:36 09/06/24 06:36 Cardiac Enzymes 09/05/24 09/05/24 09/05/24 Range/Units 12:19 12:19 15:20 AST 32 (14-36) U/L Troponin I 0.054 H* 0.043 H* (0.000-0.034) ng/mL 09/06/24 Range/Units 06:36 AST 36 (14-36) U/L Troponin I (0.000-0.034) ng/mL CBC 09/05/24 09/06/24 Range/Units 12:19 06:36 WBC 6.2 6.5 (3.8-10.6) k/uL RBC 3.44 L 3.36 L (3.80-5.40) m/uL Hgb 9.2 L 8.9 L (11.4-16.0) gm/dL Hct 29.7 L 29.2 L (34.0-46.0) % Plt Count 281 286 (150-450) k/uL Comprehensive Metabolic Panel 09/05/24 09/06/24 Range/Units 12:19 06:36 Sodium 138 139 (137-145) mmol/L Potassium 3.6 3.3 L (3.5-5.1) mmol/L Chloride 113 H 106 (98-107) mmol/L Carbon Dioxide 19 L 23 (22-30) mmol/L BUN 18 H 18 H (7-17) mg/dL Creatinine 0.74 0.80 (0.52-1.04) mg/dL Glucose 121 H 121 H (74-99) mg/dL Calcium 9.2 9.2 (8.4-10.2) mg/dL AST 32 36 (14-36) U/L ALT 21 25 (4-34) U/L Alkaline Phosphatase 121 128 H (38-126) U/L Total Protein 6.4 6.3 (6.3-8.2) g/dL Albumin 3.7 3.8 (3.5-5.0) g/dL Current Medications Generic Name Dose Route Start Last Admin Trade Name Freq PRN Reason Stop Dose Admin Acetaminophen 650 mg 09/05/24 14:13 09/05/24 23:53 Acetaminophen Tab 325 Mg Tab PO 650 mg Q6HR PRN Administration Mild Pain or Fever > 100.5 Amitriptyline HCl 50 mg 09/05/24 21:00 09/05/24 19:44 Amitriptyline Hcl 50 Mg Tab PO 50 mg HS MELISSA Administration Apixaban 5 mg 09/05/24 17:30 09/06/24 05:25 Apixaban 5 Mg Tab PO 5 mg BID-W/MEALS MELISSA Administration Protocol Atenolol 75 mg 09/06/24 07:30 09/06/24 05:26 Atenolol 50 Mg Tab PO 75 mg W/BRKFST MELISSA Administration Atorvastatin Calcium 10 mg 09/05/24 17:30 09/05/24 17:56 Atorvastatin 10 Mg Tab PO 10 mg W/SUPPER MELISSA Administration Azelastine HCl 2 spray 09/05/24 21:00 09/05/24 19:42 Azelastine 137mcg/[place] EA NOSTRIL 2 spray BID MELISSA Administration Budesonide/Formoterol Fumarate 2 puff 09/05/24 20:00 09/05/24 21:01 Symbicort 160-4.5 Mcg Inhaler INHALATION 2 puff RT-BID MELISSA Administration Calcium Carbonate 1 each 09/05/24 21:00 09/05/24 17:56 Calcium Carb-Vit D 500 Mg-5 Mcg Tab PO 1 each BID MELISSA Administration Duloxetine HCl 30 mg 09/06/24 07:30 09/06/24 05:25 Duloxetine Hcl 30 Mg Capsule.Dr PO 30 mg W/BRKFST MELISSA Administration Famotidine 40 mg 09/05/24 21:00 09/05/24 19:43 Famotidine 20 Mg Tab PO 40 mg HS MELISSA Administration Ferrous Sulfate 325 mg 09/11/24 09:00 Ferrous Sulfate 325 Mg Tab PO Q7D [facility] Fluticasone Propionate 2 spray 09/05/24 21:00 09/05/24 19:42 Fluticasone Nasal 50mcg/[place] 16gm Btl EA NOSTRIL 2 spray BID MELISSA Administration Furosemide 40 mg 09/06/24 07:30 09/06/24 05:26 Furosemide 40 Mg Tab PO 40 mg W/BRKFST MELISSA Administration Lactic Acid 1 applic 09/05/24 21:00 09/05/24 19:44 Ammonium Lactate 12% Cream 140 Gm Tube TOPICAL 1 applic BID MELISSA Administration Protocol Leflunomide 20 mg 09/06/24 07:30 Leflunomide 20 Mg Tab PO W/BRKFST [facility] Levothyroxine Sodium 25 mcg 09/05/24 17:00 09/06/24 05:25 Levothyroxine 25 Mcg Tab PO 25 mcg [id number]@0630 MELISSA Administration Levothyroxine Sodium 50 mcg 09/07/24 06:30 Levothyroxine 50 Mcg Tab PO SuWe@0630 [facility] Losartan Potassium 100 mg 09/06/24 07:30 09/06/24 05:25 Losartan 50 Mg Tab PO 100 mg W/BRKFST MELISSA Administration Montelukast Sodium 5 mg 09/05/24 21:00 09/05/24 19:43 Montelukast 5 Mg Chewable PO 5 mg HS MELISSA Administration Multivitamins 1 each 09/06/24 07:30 09/06/24 05:25 Multivitamins, Thera 1 Each Tab PO 1 each W/BRKFST MELISSA Administration Multivitamins/Minerals 1 each 09/05/24 21:00 09/05/24 19:43 Vit A,C & X-Bsunud-Dmbwrhgx 1 Each Tab PO 1 each BID MELISSA Administration Naloxone HCl 0.2 mg 09/05/24 14:13 Naloxone 0.4 Mg/Ml 1 Ml Vial IV Q2M PRN Opioid Reversal Pantoprazole Sodium 40 mg 09/06/24 16:00 Pantoprazole 40 Mg Tablet PO DAILY@1600 [facility] Primidone 50 mg 09/05/24 17:30 09/06/24 05:26 Primidone 50 Mg Tab PO 50 mg TID-W/MEALS MELISSA Administration Ropinirole HCl 1.25 mg 09/05/24 22:00 09/05/24 19:43 Ropinirole Hcl 0.25 Mg Tab PO 1.25 mg TID MELISSA Administration Sertraline HCl 100 mg 09/05/24 17:30 09/05/24 17:57 Sertraline 100 Mg Tab PO 100 mg W/SUPPER MELISSA Administration Tiotropium [place] 2 puff 09/06/24 08:00 Tiotropium 2.5 Mcg Inhaler INHALATION RT-DAILY [facility] Tizanidine HCl 4 mg 09/05/24 21:00 09/05/24 19:43 Tizanidine 4 Mg Tab PO 4 mg HS [facility] Administration Tramadol HCl 50 mg 09/06/24 08:00 Tramadol 50 Mg Tab PO 0800,1200,1600,2000 [facility] Trazodone HCl 25 mg 09/05/24 21:00 09/05/24 19:43 Trazodone Hcl 50 Mg Tab PO 25 mg HS MELISSA Administration Intake and Output 09/05/24 09/06/24 09/06/24 22:59 06:59 14:59 Other: Voiding Method Toilet Toilet # Voids 1 1 Weight 70.307 kg 69.3 kg 09/06/24 06:36 09/06/24 06:36
[2024-09-06] MEDS: PANTOPRAZOLE 40 MG TABLET PO SCH (15:36)
[2024-09-06] MEDS: FAMOTIDINE 20 MG TAB PO SCH (21:36)
[2024-09-07] MEDS: LEVOTHYROXINE 50 MCG TAB PO SCH (05:57)
[2024-09-07 08:24] VITALS: BP 149/80; PULSE 84; RESP 16; TEMP 97.4
[2024-09-07 08:38] LABS: Anisocytosis Slight; HGB 8.6 gm/dL (11.4-16.0); Hypochromasia Marked; MCH 26.3 pg (25.0-35.0); MCHC 30.6 g/dL (31.0-37.0); MCV 86.2 fL (80.0-100.0); Platelet Count 240 k/uL (150-450); Poikilocytosis Slight; RBC 3.25 m/uL (3.80-5.40); RDW 17.9 % (11.5-15.5); WBC 5.2 k/uL (3.8-10.6)
[2024-09-07 08:41] LABS: ALT 21 U/L (4-34); AST 29 U/L (14-36); African American GFR (CKD) 77 (>60 ml/min/1.73 sqM); Albumin 3.3 g/dL (3.5-5.0); Alkaline Phosphatase 103 U/L (38-126); Anion Gap 5 mmol/L; Blood Urea Nitrogen 20 mg/dL (7-17); Calcium 8.8 mg/dL (8.4-10.2); Carbon Dioxide 25 mmol/L (22-30); Chloride 106 mmol/L (98-107); Glucose 139 mg/dL (74-99); Magnesium 1.6 mg/dL (1.6-2.3); Non-African American GFR(CKD) 67 (>60 ml/min/1.73 sqM); Potassium 3.2 mmol/L (3.5-5.1); Sodium 136 mmol/L (137-145); Total Bilirubin 0.4 mg/dL (0.2-1.3); Total Protein 5.7 g/dL (6.3-8.2)
--- NOTE | 2024-09-07 14:45 | P.DS ---
Providers Date of admission: 09/05/24 15:16 Expected date of discharge: 09/07/24 Attending physician: Tereso Hardwick MD Consults: 09/05/24 14:13 Consult Physician Routine Consulting Provider: Sina Amos Consult Reason/Comments: elevated troponin, HTN Do you want consulting provider notified?: Yes, Notify in am Primary care physician: Sushant Todd Hospital Course: Discharge Diagnosis: Hypertensive urgency. Patient presented with hypertensive urgency with blood pressure of 221/114. Medication changes were made including increasing losartan to 100 mg daily and started patient on Aldactone 25 mg daily in addition to current medication regimen with atenolol 75 mg daily. Blood pressures much better controlled. Blood pressure 149/80, heart rate 84, respiratory rate 16, temp 97.4 F, and SpO2 of 100% on room air. Elevated troponins. Cardiology evaluated adding Aldactone onto patient's medication regimen and clearing patient from cardiac perspective stating no further cardiac workup recommended at this time recommend patient follow-up outpatient with Dr. Hong in office for scheduling of outpatient stress test. History of DVT right lower extremity. Bilateral lower extremity Dopplers negative for DVT. Per leather tacker Eliquis was discontinued. Hypothyroidism: Continue levothyroxine 50 mcg on Sundays and Wednesdays and thyroxine 25 mcg Mondays, Tuesdays, , Fridays, and Saturdays. Restless leg syndrome: Continue Requip 1.25 mg 3 times daily. Asthma: Continue Astepro 2 sprays in bilateral naris daily, Symbicort 2 puffs twice daily, Singulair 5 mg nightly, Spiriva 2 puffs daily, and Rheumatoid arthritis: Continue Arava 20 mg daily. Mood disorder: Continue daily medication regimen with Elavil 50 mg nightly, Cymbalta 30 mg daily Zoloft 100 mg daily, and trazodone 25 mg nightly. Hospital course: Patient is a very pleasant 84-year-old female with a past medical history of hypertension, history of DVT in right lower extremity on Eliquis, hypothyroidism, rheumatoid arthritis, restless leg syndrome, mood disorder, asthma and multiple allergies under care of printing supervisor. She presented to the hospital on 09/05/2024 from her printing supervisor office for reports of hypertension with a reported blood pressure of 221/114. Patient was asymptomatic to hypertension but was sent to our facility for evaluation. Upon arrival to our facility, patient underwent evaluation in the emergency department. Vital signs upon arrival show blood pressure 201/98, heart rate 97, respiratory rate 20, temp 97.6 F, and SpO2 of 97% on room air. EKG completed showing sinus rhythm at 96 bpm with occasional PVCs. Labs completed and reviewed. CBC showing stable normocytic anemia with hemoglobin of 9.2. BMP showing hyperchloremia with chloride of 113 bicarb of 19, and anion gap of 6 with prerenal azotemia with BUN of 18. Blood glucose 121. Liver profile unremarkable. Troponin was 0.054. Patient was admitted under services for hypertensive urgency with consultation to cardiology for hypertensive urgency and elevated troponin. Troponins were trended resulting at 0.054 and 0.043.Bilateral lower extremity Dopplers negative for DVT. Per leather tacker Eliquis was discontinued. Cardiology evaluated adding Aldactone onto patient's medication regimen and clearing patient from cardiac perspective stating no further cardiac workup recommended at this time recommend patient follow-up outpatient with Dr. Hong in office for scheduling of outpatient stress test. Patient presented with hypertensive urgency with blood pressure of 221/114. Medication changes were made including increasing losartan to 100 mg daily and started patient on Aldactone 25 mg daily in addition to current medication regimen with atenolol 75 mg daily. Blood pressures much better controlled. Blood pressure 149/80, heart rate 84, respiratory rate 16, temp 97.4 F, and SpO2 of 100% on room air. Physical exam: Vital signs reviewed and stable. General: Nontoxic, no distress and appears stated age. Derm: Skin warm and dry, normal coloration for ethnicity. Head: Atraumatic, normocephalic and symmetric. Eyes: EOM's intact, no lid lag, and anicteric sclera Mouth: no lip lesions, mucus membranes moist Cardiovascular: regular rate and rhythm with normal S1S2, no murmur, positive posterior tibial pulses bilaterally, and cap refill < 2 seconds. Lungs: Respirations even, regular, and unlabored on room air. Lungs CTA bilaterally, no rhonchi, no rales, no wheezing, and no accessory muscle usage. Abdominal: soft, nontender to palpation, no guarding, no appreciable organomegaly Ext: ROM intact. No gross muscle atrophy, no edema, no contractures Neuro: Speech clear, face symmetrical and CN II-XII grossly intact with no noted focal neuro deficits Psych: Alert and oriented to person, place, time, and situation. Appropriate and pleasant affect. A total of 35 minutes of time were spent preparing this complex discharge summary. Pt was discharged on 09/07/2024 at 11:47 AM. Patient was seen independently by Nurse Practitioner. This document was prepared using [employer] dictation software. Please allow for errors in printed circuit board panels trimmer while rare they do occur. Devon Galindo TERRA[employer]O TILE SETTER rendered care for this patient independently, reviewed the findings and plan as documented in the note above. I did not physically speak with or examine the patient on this date. . Patient Condition at Discharge: Stable Plan - Discharge Summary Discharge Rx Participant: Yes New Discharge Prescriptions: New Spironolactone [Aldactone] 25 mg PO DAILY 30 Days #30 tab Losartan [Cozaar] 100 mg PO W/BRKFST 30 Days #60 tab Continue Calcium 600 Mg-Vit D3 25mcg 1 tab PO BID Ammonium Lactate Cream [Lac-Hydrin 12% Cream] 1 applic TOPICAL BID atenoloL [Tenormin] 75 mg PO W/BRKFST DULoxetine HCL [Cymbalta] 30 mg PO W/BRKFST Esomeprazole Magnesium [NexIUM 24Hr] 40 mg PO DAILY@1600 Ferrous Sulfate [Iron (65 MG Elemental)] 325 mg PO Q7D Fluticasone Nasal [place] [Flonase Nasal [place]] 2 spr EA NOSTRIL BID Furosemide [Lasix] 40 mg PO W/BRKFST Levothyroxine Sodium [Synthroid] 50 mcg PO SUWE Levothyroxine Sodium [Synthroid] 25 mcg PO MOTUTHFRSA Multivit-Min/FA/Lycopen/Lutein [Centrum Silver Tablet] 1 tab PO W/BRKFST Primidone 50 mg PO TID-W/MEALS Simvastatin [Zocor] 10 mg PO W/SUPPER Tiotropium 2.5 Mcg/Puff [Spiriva Respimat 2.5 Mcg] 1 puff INHALATION RT-BID tiZANidine [Zanaflex] 4 mg PO HS traZODone HCL [Desyrel] 25 mg PO HS Zafirlukast [Accolate] 20 mg PO W/BRKFST Amitriptyline HCl [Elavil] 50 mg PO HS Azelastine HCl [Astelin Nasal [place]] 2 spr EA NOSTRIL BID Budesonide/Formoterol Fumarate [Symbicort 160-4.5 Mcg Inhaler] 2 puff INHALATION RT-BID Famotidine [Pepcid] 40 mg PO HS Leflunomide [Arava] 20 mg PO W/BRKFST rOPINIRole HCL [Requip XL] 4 mg PO HS Sertraline [Zoloft] 100 mg PO W/SUPPER traMADol HCL [traMADol HCL ER] 300 mg PO W/BRKFST Vit C/E/Zn/Coppr/Lutein/Zeaxan [Preservision Areds 2 Softgel] 1 cap PO BID Discontinued Losartan [Cozaar] 50 mg PO W/BRKFST Apixaban [Eliquis] 2.5 mg PO BID-W/MEALS Discharge Medication List Amitriptyline HCl [Elavil] 50 mg PO HS 09/05/24 [History] Ammonium Lactate Cream [Lac-Hydrin 12% Cream] 1 applic TOPICAL BID 09/05/24 [History] Azelastine HCl [Astelin Nasal [place]] 2 spr EA NOSTRIL BID 09/05/24 [History] Budesonide/Formoterol Fumarate [Symbicort 160-4.5 Mcg Inhaler] 2 puff INHALATION RT-BID 09/05/24 [History] Calcium 600 Mg-Vit D3 25mcg 1 tab PO BID 09/05/24 [History] DULoxetine HCL [Cymbalta] 30 mg PO W/BRKFST 09/05/24 [History] Esomeprazole Magnesium [NexIUM 24Hr] 40 mg PO DAILY@1600 09/05/24 [History] Famotidine [Pepcid] 40 mg PO HS 09/05/24 [History] Ferrous Sulfate [Iron (65 MG Elemental)] 325 mg PO Q7D 09/05/24 [History] Fluticasone Nasal [place] [Flonase Nasal [place]] 2 spr EA NOSTRIL BID 09/05/24 [History] Furosemide [Lasix] 40 mg PO W/BRKFST 09/05/24 [History] Leflunomide [Arava] 20 mg PO W/BRKFST 09/05/24 [History] Levothyroxine Sodium [Synthroid] 25 mcg PO MOTUTHFRSA 09/05/24 [History] Levothyroxine Sodium [Synthroid] 50 mcg PO SUWE 09/05/24 [History] Multivit-Min/FA/Lycopen/Lutein [Centrum Silver Tablet] 1 tab PO W/BRKFST 09/05/24 [History] Primidone 50 mg PO TID-W/MEALS 09/05/24 [History] Sertraline [Zoloft] 100 mg PO W/SUPPER 09/05/24 [History] Simvastatin [Zocor] 10 mg PO W/SUPPER 09/05/24 [History] Tiotropium 2.5 Mcg/Puff [Spiriva Respimat 2.5 Mcg] 1 puff INHALATION RT-BID 09/05/24 [History] Vit C/E/Zn/Coppr/Lutein/Zeaxan [Preservision Areds 2 Softgel] 1 cap PO BID 09/05/24 [History] Zafirlukast [Accolate] 20 mg PO W/BRKFST 09/05/24 [History] atenoloL [Tenormin] 75 mg PO W/BRKFST 09/05/24 [History] rOPINIRole HCL [Requip XL] 4 mg PO HS 09/05/24 [History] tiZANidine [Zanaflex] 4 mg PO HS 09/05/24 [History] traMADol HCL [traMADol HCL ER] 300 mg PO W/BRKFST 09/05/24 [History] traZODone HCL [Desyrel] 25 mg PO HS 09/05/24 [History] Losartan [Cozaar] 100 mg PO W/BRKFST 30 Days #60 tab 09/07/24 [Rx] Spironolactone [Aldactone] 25 mg PO DAILY 30 Days #30 tab 09/07/24 [Rx] Follow up Appointment(s)/Referral(s): Laurent Hong DO [STAFF PHYSICIAN] - 1 Week (please call office to make appointment) Sushant Todd DO [Primary Care Provider] - 1-2 days (please call office to make an appointment) Activity/Diet/Wound Care/Special Instructions: Activity: As tolerated. Take breaks as needed. Diet: Heart healthy and carb consistent diet. Avoid salts, or foods with hidden salts such as canned or boxed foods and frozen dinners. Extra salt makes your heart work harder and traps the fluid in your body for longer. Special Instructions: Take all of your medications as directed and remember to keep all of your doctor's appointments and follow-up as needed. Per cardiology Eliquis is discontinued as your bilateral lower extremity Dopplers were negative. It is recommended you follow-up outpatient with Dr. Hong in office next week to schedule outpatient stress testing. Thank you for allowing us to participate in your care, it was truly a pleasure having you for our patient!!! Discharge/Stand Alone Forms: Who Do I Call? Discharge Disposition: HOME SELF-CARE
[2024-09-11] MEDS ORDERED: FERROUS SULFATE 325 MG TAB PO SCH (09:00)
== END 2024-09-07 13:43 | disposition home or self-care (01) ==
LOC: EC 11:23 → 3SCARD 15:16
PROVIDERS: ADMIT Family Medicine; ATTEND Family Medicine
DX: I16.0 Hypertensive urgency (principal); R79.89 Other specified abnormal findings of blood chemistry; I49.3 Ventricular premature depolarization; E87.20 Acidosis, unspecified; E87.8 Other disorders of electrolyte and fluid balance, not elsewhere classified; I10 Essential (primary) hypertension; E78.5 Hyperlipidemia, unspecified; I27.20 Pulmonary hypertension, unspecified; I08.3 Combined rheumatic disorders of mitral, aortic and tricuspid valves; E03.9 Hypothyroidism, unspecified; J44.89 Other specified chronic obstructive pulmonary disease; D64.9 Anemia, unspecified; G25.81 Restless legs syndrome; M06.9 Rheumatoid arthritis, unspecified; F39 Unspecified mood [affective] disorder; Z66 Do not resuscitate; Z79.899 Other long term (current) drug therapy; Z79.01 Long term (current) use of anticoagulants; Z79.51 Long term (current) use of inhaled steroids; Z79.890 Hormone replacement therapy; Z88.1 Allergy status to other antibiotic agents; Z88.0 Allergy status to penicillin; Z88.8 Allergy status to other drugs, medicaments and biological substances; Z86.718 Personal history of other venous thrombosis and embolism; Z82.49 Family history of ischemic heart disease and other diseases of the circulatory system
CPT/HCPCS: 96374; 99284; 36415; 94640 ×5; 93005; 93306; 80053 ×3; 83735 ×2; 84484; 85025 ×2; 85027; 71046; 93970; G0378 ×3; J2405